=== PATIENT | female | born 1965 | race Caucasian/White ===

== ENCOUNTER 2020-06-17 09:53 | Emergency (ER) | payer OTHER ==
--- NOTE | 2020-06-17 11:05 | ER Document Report ---
ED General - General Stated Complaint: HEADACHE,BODY PAIN Mode of Arrival: Medic Information source: Patient, Relative Notes: Patient is a 55-year-old female presenting to the emergency department via EMS chief complaint of numbness tingling headache. The report is that the patient was taking a shower and suddenly had a sharp pain to her left flank. She states shortly after that her left side felt numb and tingling when asked further she states that it was actually very diffuse but she does report the first symptoms appeared to be perioral and fingertip numbness and tingling. When EMS showed up patient decided not to go by EMS and went to see her primary care provider and while at their office they were concerned that the patient may be exhibiting signs and symptoms of a stroke and recommended that the patient come to the emergency department for evaluation and treatment. When speaking to the patient's he states they have been under a lot of stress lately in regards to housing issues. Patient does have a prior history of anxiety and depression as well as thyroid disease. TRAVEL OUTSIDE OF THE [place] IN LAST 30 DAYS: No - HPI Onset: This morning Onset/Duration: Sudden Quality of pain: Burning Severity: Moderate Pain Level: 3 Associated symptoms: Headache, Shortness of breath, Slow to respond, Weakness. denies: Diarrhea, Nausea, Vomiting Exacerbated by: Denies Relieved by: Denies Similar symptoms previously: No Recently seen / treated by doctor: No Past Medical History - General Information source: Patient, Relative - Social History Smoking Status: Never Smoker Chew tobacco use (# tins/day): No Frequency of alcohol use: None Drug Abuse: None Lives with: Spouse/Significant other Family History: Reviewed & Not Pertinent Patient has suicidal ideation: No Patient has homicidal ideation: No Endocrine Medical History: Reports: Hx Hypothyroidism Psychiatric Medical History: Reports: Hx Depression Review of Systems - Review of Systems Notes: REVIEW OF SYSTEMS: CONSTITUTIONAL : Denies fever, chills, or sweats. Denies recent illness. EENT: Denies eye, ear, throat, or mouth pain or symptoms. Denies nasal or sinus congestion. CARDIOVASCULAR: Denies chest pain. RESPIRATORY: Per HPI GASTROINTESTINAL: Denies abdominal pain. Denies nausea, vomiting, or diarrhea. Denies constipation. GENITOURINARY: Denies difficulty urinating, painful urination, burning, frequency, or blood in urine. MUSCULOSKELETAL: Denies neck or back pain or joint pain or swelling. SKIN: Denies rash or skin lesions. HEMATOLOGIC : Denies easy bruising or bleeding. NEUROLOGICAL: Per HPI PSYCHIATRIC: Per HPI 10 Systems are negative unless otherwise specified above Physical Exam - Vital signs Vitals: Resp BP Pulse Ox 29 H 145/90 H 100 06/17/20 10:02 06/17/20 10:02 06/17/20 10:02 - Notes Notes: PHYSICAL EXAMINATION: GENERAL: Patient is a 55-year-old female in obvious discomfort/distress breathing fast and having difficulty speaking because she states it is difficult to breathe and swallow. HEAD: Atraumatic, normocephalic. EYES: Pupils equal round and reactive to light, extraocular movements intact, sclera anicteric, conjunctiva are moderately injected but the patient has been c rying ENT: nares patent, oropharynx clear without exudates. Moist mucous membranes. NECK: Normal range of motion, supple without lymphadenopathy, no appreciable JVD LUNGS: Lungs clear to auscultation bilaterally and equal. No wheezes rales or rhonchi. However patient is tachypneic HEART: Tachycardic rate and rhythm without murmurs ABDOMEN: Soft, nontender, normal bowel sounds. No guarding, no rebound. No masses appreciated. EXTREMITIES: Active full range of motion, no pitting or edema. No cyanosis. 2+ pulses x4 NEUROLOGICAL: At time of evaluation the patient is alert and oriented x3, Glascow coma scale of 15, cranial nerves II through XII are grossly intact with the exception of the subjective complaint of headache and the obvious anxiety. sensations intact, motor is intact, there are no signs of nystagmus, there is no pronator drift, there is no facial asymmetry, tongue protrusion is midline, reflexes are equal and bilateral, patient ambulates without ataxia, patient answers all questions appropriately follows commands appropriately. SKIN: Warm, Dry, and intact. Normal turgor, no rashes or lesions noted. Course - Re-evaluation Re-evalutation: 06/17/20 13:31 Patient has been reevaluated several times while in emergency department the patient has remained stable and gradually has normalized. On reevaluation patient is alert and oriented no acute distress showing no signs of cerebrovascular accident. When speaking with the patient and her they are agreeable with discharge home. I believe this is mainly a stress/anxiety attack. Patient is stable at this time. - Vital Signs Vital signs: Temp Pulse Resp BP Pulse Ox 98.1 F 29 H 145/89 H 99 06/17/20 10:21 06/17/20 10:02 06/17/20 11:01 06/17/20 11:01 - Laboratory Result Diagrams: 06/17/20 11:00 06/17/20 11:00 Laboratory results interpreted by me: 06/17/20 06/17/20 11:00 11:53 Chloride 108 H ALT 39 H Urine Ketones TRACE H - Diagnostic Test Radiology reviewed: Reports reviewed - EKG Interpretation by Mi EKG shows normal: Sinus rhythm Rate: Normal Rhythm: NSR When compared to previous EKG there are: Previous EKG unavailable Discharge - Discharge Clinical Impression: Anxiety as acute reaction to exceptional stress Condition: Stable Disposition: HOME, SELF-CARE Instructions: Anxiety ([facility]) Additional Instructions: I recommend following up with your primary care provider over the next several days for further evaluation treatment and management as is necessary. Return to the emergency department for worsening symptoms.
[2020-06-17 11:23] LABS: ABSOLUTE BASOPHILS # (AUTO) 0.1 10^3/uL (0.0-0.2); ABSOLUTE EOSINOPHILS # (AUTO) 0.1 10^3/uL (0.0-0.6); ABSOLUTE LYMPHOCYTES (AUTO) 1.6 10^3/uL (0.5-4.7); ABSOLUTE MONOCYTES (AUTO) 0.6 10^3/uL (0.1-1.4); ABSOLUTE NEUT (AUTO) 3.6 10^3/uL (1.7-8.2); EOSINOPHILS % (AUTO) 0.9 % (0-6); HEMATOCRIT 40.7 % (36.0-47.0); HEMOGLOBIN 14.1 g/dL (12.0-15.5); LYMPHOCYTES % (AUTO) 27.7 % (13-45); MEAN CORPUSCULAR HEMOGLOBIN 31.8 pg (27.0-33.4); MEAN CORPUSCULAR HGB CONC 34.6 g/dL (32.0-36.0); MEAN CORPUSCULAR VOLUME 92 fl (80-97); PLATELET COUNT 307 10^3/uL (150-450); RED BLOOD COUNT 4.43 10^6/uL (3.72-5.28); RED CELL DISTRIBUTION WIDTH 13.3 % (11.5-14.0); SEGMENTED NEUTROPHILS % (AUTO) 60.4 % (42-78); TOTAL CELLS COUNTED % (AUTO) 100 %; WHITE BLOOD COUNT 5.9 10^3/uL (4.0-10.5)
[2020-06-17 11:43] LABS: ALBUMIN 4.1 g/dL (3.5-5.0); ALKALINE PHOSPHATASE 126 U/L (38-126); ANION GAP 9 (5-19); ASPARTATE AMINO TRANSFERASE 32 U/L (14-36); BILIRUBIN,DIRECT 0.2 mg/dL (0.0-0.4); BILIRUBIN,TOTAL 0.7 mg/dL (0.2-1.3); BLOOD UREA NITROGEN 18 mg/dL (7-20); CALCIUM 9.7 mg/dL (8.4-10.2); CARBON DIOXIDE 23 mmol/L (22-30); CHLORIDE 108 mmol/L (98-107); CREATINE KINASE 84 U/L (30-135); GLUCOSE 99 mg/dL (75-110); POTASSIUM 3.7 mmol/L (3.6-5.0); TOTAL PROTEIN 6.9 g/dL (6.3-8.2)
--- NOTE | 2020-06-17 12:16 | RADIOLOGY REPORT (SQ) ---
EXAM DESCRIPTION: CT HEAD WITHOUT IMAGES COMPLETED DATE/TIME: 06/17/2020 12:05 pm REASON FOR STUDY: [place] COMPARISON: None. TECHNIQUE: Axial images acquired through the brain without intravenous contrast. Images reviewed wi th bone, brain and subdural windows. Images stored on PACS. All CT scanners at this facility use dose modulation, iterative reconstruction, and/or weight based d osing when appropriate to reduce radiation dose to as low as reasonably achievable (ALARA). [facility]: Dose Right [facility]: CareDose [facility]: Dose Right [facility]: Teradose 4D [facility]: [employer] RADIATION DOSE: CT Rad equipment meets quality standard of care and radiation dose reduction techniq ues were employed. CTDIvol: 53.2 mGy. DLP: 1017 mGy-cm. mGy. LIMITATIONS: None. FINDINGS: VENTRICLES: Normal size and contour. CEREBRUM: No masses. No hemorrhage. No midline shift. No evidence for acute infarction. Normal gra y/white matter differentiation. No areas of low density in the white matter. CEREBELLUM: No masses. No hemorrhage. No alteration of density. No evidence for acute infarction. EXTRAAXIAL SPACES: No fluid collections. No masses. ORBITS AND GLOBE: No intra- or extraconal masses. Normal contour of globe without masses. CALVARIUM: No fracture. PARANASAL SINUSES: No fluid or mucosal thickening. SOFT TISSUES: No mass or hematoma. OTHER: No other significant finding. IMPRESSION: NORMAL BRAIN CT WITHOUT CONTRAST. EVIDENCE OF ACUTE STROKE: NO. COMMENT: Quality ID # [id number]: Final reports with documentation of one or more dose reduction techniques (e.g., Automated exposure control, adjustment of the mA and/or kV according to patient size, use of iterative reconstruction technique) TECHNICAL DOCUMENTATION: JOB ID: [id number] 2010 [employer]- All Rights Reserved Reading location - IP/workstation name: [email or web address]
[2020-06-17 12:17] LABS: APPEARANCE,URINE SLIGHTLY-CLOUDY; BILIRUBIN,URINE NEGATIVE (NEGATIVE); COLOR,URINE YELLOW; GLUCOSE, URINE NEGATIVE (NEGATIVE); KETONES,URINE TRACE mg/dL (NEGATIVE); LEUKOCYTE ESTERASE,URINE NEGATIVE (NEGATIVE); NITRITE,URINE NEGATIVE (NEGATIVE); PROTEIN,URINE NEGATIVE (NEGATIVE); URINE SPECIFIC GRAVITY 1.004; UROBILINOGEN,URINE NEGATIVE mg/dL (<2.0)
[2020-06-17 12:23] LABS: ADD MANUAL MICROSCOPIC YES; BACTERIA,URINE 2+ /HPF; RBC,URINE NONE SEEN /HPF; WBC,URINE RARE /HPF
[2020-06-17 13:36] VITALS: BP 128/85
--- NOTE | 2020-06-18 08:37 | EKG REPORT ---
SEVERITY:- NORMAL ECG - SINUS RHYTHM : Confirmed by: Tere Reyes MD 18-Jun-2020 08:36:35
== END 2020-06-17 13:37 | disposition home or self-care (01) ==
LOC: ER 09:53
DX: F43.0 Acute stress reaction (principal); F41.9 Anxiety disorder, unspecified; R51 Headache; M79.10 Myalgia, unspecified site
CPT/HCPCS: 36415; 70450; 80053; 81001; 82550; 83690; 83735; 84443; 84484; 85025; 93005; 93010; 99285

== ENCOUNTER 2020-06-19 08:00 | Emergency (ER) | payer OTHER ==
[2020-06-19] MEDS ORDERED: OXYCODONE-ACETAMINOPHEN 5-325 MG TABLET PO ONE (08:56)
--- NOTE | 2020-06-19 08:56 | ER Document Report ---
ED Hip Pain/Injury - General Chief Complaint: Hip Pain Stated Complaint: LEFT HIP,LEG PAIN Time Seen by Provider: 06/19/20 08:48 Primary Care Provider: KORI SANTIAGO PA-C [Primary Care Provider] - Follow up as needed Notes: CHIEF COMPLAINT: Continuing left hip pain HPI: 55-year-old female presenting to the emergency department complaining of continued left hip pain. Patient states that she was getting out of the tub 2 days ago and as she was stepping out felt a sudden "pop" in the left hip. Patient immediately went to the ground. States she came into the emergency department because she had numbness and tingling in all extremities, pain to the left side and was hyperventilating and anxious. States that they never did x- ray of the hip. Went to a chiropractor yesterday who told her it was a sciatic nerve issue. They did not x-ray the hip at the chiropractic office. Denies numbness or tingling in the leg but complains of severe pain to the left hip region. Denies back pain. Denies incontinence of urine or bowel. Denies perennial numbness. ROS: See HPI - all other systems were reviewed and are otherwise negative Constitutional: no fever Eyes: no drainage, no blurred vision ENT: no runny nose, no sore throat Cardiovascular: no chest pain Resp: no SOB, no cough GI: no vomiting, no diarrhea, no abdominal pain : no dysuria Integumentary: no rash Allergy: no hives Musculoskeletal: + extremity pain or swelling Neurological: no numbness/tingling, no weakness MEDICATIONS: I agree with the patient medications as charted by the RN. ALLERGIES: I agree with the allergies as charted by the RN. PAST MEDICAL HISTORY/PAST SURGICAL HISTORY: Reviewed and agree as charted by RN. SOCIAL HISTORY: Reviewed and agree as charted by RN. FAMILY HISTORY: No significant familial comorbid conditions directly related to patient complaint EXAM: Reviewed vital signs as charted by RN. CONSTITUTIONAL: Alert and oriented and responds appropriately to questions. Well-appearing; well-nourished HEAD: Normocephalic; atraumatic EYES: PERRL; Conjunctivae clear, sclerae non-icteric ENT: normal nose; no rhinorrhea; moist mucous membranes NECK: Supple without meningismus; non-tender; no cervical lymphadenopathy, no masses CARD: RRR; no murmurs, no clicks, no rubs, no gallops; symmetric distal pulses RESP: Normal chest excursion without splinting or tachypnea; breath sounds clear and equal bilaterally; no wheezes, no rhonchi, no rales, pulse oximetry 97% on room air not hypoxic ABD/GI: Normal bowel sounds; non-distended; soft, non-tender, no rebound, no guarding; no palpable organomegaly or masses. BACK: The back appears normal and is non-tender to palpation, there is no CVA tenderness EXT: Some limited abduction and abduction of the left leg at the hip secondary to complaints of pain. She has pain on palpation over the greater trochanter of the left hip. No inguinal pain in the pelvis on compression of the pelvis. Patient is able to straight leg lift the left leg off the bed. Sensation is intact in the distal left lower extremity to touch with capillary refill less than 3 seconds. SKIN: Normal color for age and race; warm; dry; good turgor; no acute lesions noted NEURO: Moves all extremities equally; Motor and sensory function intact. No saddle anesthesia on exam PSYCH: The patient's mood and manner are appropriate. Grooming and personal hygiene are appropriate. MDM: 55-year-old female left hip pain I suspect a likely labral tear, will initially obtain an x-ray to evaluate for fracture if negative given the patient's pain level may consider CT imaging to definitively rule out a fracture. TRAVEL OUTSIDE OF THE [place] IN LAST 30 DAYS: No - Related Data Allergies/Adverse Reactions: clarithromycin [From Biaxin] Allergy (Verified 06/19/20 08:29) codeine Allergy (Verified 06/19/20 08:29) Home Medications: gabapentin. lyrica. synthroid. fluroxetine Past Medical History - Social History Smoking Status: Never Smoker Chew tobacco use (# tins/day): No Frequency of alcohol use: None Drug Abuse: None Family History: Reviewed & Not Pertinent Patient has homicidal ideation: No Endocrine Medical History: Reports: Hx Hypothyroidism Psychiatric Medical History: Reports: Hx Depression Physical Exam - Vital signs Vitals: Temp Pulse Resp BP Pulse Ox 98.0 F 86 16 132/84 H 100 06/19/20 08:07 06/19/20 08:07 06/19/20 08:07 06/19/20 08:07 06/19/20 08:07 Course - Re-evaluation Re-evalutation: 06/19/20 09:21 X-ray on my review does not show evidence of a fracture. I do question the upper inner aspect of the sacrum or iliac crest on the left side as it does not appear symmetric with the right, will obtain CT 06/19/20 11:13 CT imaging does not show evidence of fracture discussed with the patient she would like additional pain medications will give her a dose of morphine intramuscular. Follow-up with orthopedics for further evaluation and outpatient testing - Vital Signs Vital signs: Temp Pulse Resp BP Pulse Ox 98.0 F 86 16 132/84 H 100 06/19/20 08:30 06/19/20 08:07 06/19/20 08:07 06/19/20 08:07 06/19/20 08:07 Discharge - Discharge Clinical Impression: Injury of hip, left Qualifiers: Encounter type: subsequent encounter Qualified Code(s): S79.912D - Unspecified injury of left hip, subsequent encounter Condition: Stable Disposition: HOME, SELF-CARE Additional Instructions: Your imaging study did not show evidence of a fracture today. Use the crutches to assist with weightbearing. Pain medications as prescribed. Follow-up with orthopedics for further evaluation and outpatient testing call for appointment Prescriptions: Oxycodone HCl/Acetaminophen [Percocet 5-325 mg Tablet] 1 tab PO Q4H PRN #15 tab PRN Reason: Diclofenac Sodium [Voltaren 50 Mg Tablet.] 50 mg PO BID #20 tablet. Referrals: KORI SANTIAGO PA-C [Primary Care Provider] - Follow up as needed AIDEE PARIKH MD [ACTIVE STAFF] - Follow up as needed
--- NOTE | 2020-06-19 09:43 | RADIOLOGY REPORT (SQ) ---
EXAM DESCRIPTION: HIP LEFT AP/LATERAL IMAGES COMPLETED DATE/TIME: 06/19/2020 9:33 am REASON FOR STUDY: Trauma, left hip pain COMPARISON: None. NUMBER OF VIEWS: Two views. TECHNIQUE: AP and frog-leg view of the left hip. LIMITATIONS: None. FINDINGS: MINERALIZATION: Normal. LEFT HIP: No fracture or dislocation. No worrisome bone lesions. OPPOSITE HIP: No fracture or dislocation. No worrisome bone lesions. SOFT TISSUES: No findings. OTHER: No other significant finding. IMPRESSION: NEGATIVE STUDY OF THE LEFT HIP. NO RADIOGRAPHIC EVIDENCE OF ACUTE INJURY. COMMENT: Pelvic fractures are often occult on plain radiographs. If strong clinical suspicion for f racture, recommend CT or MR. TECHNICAL DOCUMENTATION: JOB ID: [id number] 2010 [employer]- All Rights Reserved Reading location - IP/workstation name: [email or web address]
--- NOTE | 2020-06-19 10:36 | RADIOLOGY REPORT (SQ) ---
EXAM DESCRIPTION: CT LT LOWER EXTREMITY WITHOUT IMAGES COMPLETED DATE/TIME: 06/19/2020 9:59 am REASON FOR STUDY: left hip inj. hip and iliac crest for fracture COMPARISON: Conventional radiographs done earlier the same day. TECHNIQUE: CT scan of the left hip performed without intravenous or oral contrast. Images reviewed with soft tissue and bone windows. Reconstructed coronal and sagittal MPR images reviewed. All imag es stored on PACS. All CT scanners at this facility use dose modulation, iterative reconstruction, and/or weight based d osing when appropriate to reduce radiation dose to as low as reasonably achievable (ALARA). [facility]: Dose Right [facility]: CareDose [facility]: Dose Right [facility]: Teradose 4D [facility]: [employer] RADIATION DOSE: CT Rad equipment meets quality standard of care and radiation dose reduction techniq ues were employed. CTDIvol: 33.6 mGy. DLP: 1137 mGy-cm. mGy. LIMITATIONS: None. FINDINGS: PELVIC BONES: No acute fracture. No worrisome bone lesions. VISUALIZED SPINE: No acute findings. SYMPTOMATIC HIP: No acute fracture or dislocation. No worrisome bone lesions. OPPOSITE HIP: No acute fracture or dislocation. No worrisome bone lesions. PELVIC SOFT TISSUES: No significant findings. EXTRAPELVIC SOFT TISSUES: No significant findings. OTHER: No other significant finding. IMPRESSION: NO ACUTE OR SIGNIFICANT FINDINGS IN THE HIP OR PELVIS. TECHNICAL DOCUMENTATION: JOB ID: [id number] Quality ID # [id number]: Final reports with documentation of one or more dose reduction techniques (e.g., Au tomated exposure control, adjustment of the mA and/or kV according to patient size, use of iterative reconstruction technique) 2010 [employer]- All Rights Reserved Reading location - IP/workstation name: [email or web address]
[2020-06-19] MEDS ORDERED: ONDANSETRON 4 MG TAB.RAPDIS PO ONE (11:14)
[2020-06-19] MEDS ORDERED: MORPHINE SULFATE 10 MG/ML INJ IM ONE (11:14)
[2020-06-19 11:48] VITALS: BP 135/77
== END 2020-06-19 11:53 | disposition home or self-care (01) ==
LOC: ER 08:00
DX: S79.912D Unspecified injury of left hip, subsequent encounter (principal); X58.XXXD Exposure to other specified factors, subsequent encounter
CPT/HCPCS: 99285; 96372; 73502; 73700; S0119; J2270